=== PATIENT | male | born 1995 | race Caucasian/White ===

== ENCOUNTER 2016-07-31 01:07 | Emergency (ER) | payer SELFPAY ==
--- NOTE | 2016-07-31 07:11 | ER ---
ADMIT: 07/31/2016 RM/LOC: ER [facility] MR#: [id number] [id number] GAGANDEEP ROMERO [address] [place] [id number] Emergency Room Report SEX: M AGE: 21 : 1995 DATE: 07/31/2016 The patient is a 21-year-old male complaining of toothache #13. Denies any fevers, chills, or discharge. Exam remarkable for acutely uncomfortable afebrile male with poor dentition and caries noted #13. Received a benzocaine topical followed by bupivacaine 0.5 mg with epinephrine, superior alveolar block with relief. Pen-Vee K 1 g p.o. in department, 500 mg q.i.d. #40; hydrocodone 5/325 mg as needed #20. Follow up with Dr. Fernandez and dentist as soon as possible. Yan Liang MD/ lorena JOB #: [id number] CC: Yan Liang MD, Attending Physician Denise Fernandez MD, Family Physician Denise Fernandez MD
--- NOTE | 2016-07-31 14:58 | NUR ---
Received referral. Attempted to contact pt. Number listed for pt is not a correct number. Number listed for mom is not a correct number. Number listed for dad is not a working number.
== END 2016-07-31 02:40 | disposition home or self-care (01) ==
LOC: ER 01:07
PROC: 3E0T3BZ Introduction of Anesthetic Agent into Peripheral Nerves and Plexi, Percutaneous Approach (ICD-10-PCS; principal; 2016-07-31)
DX: K08.89 Other specified disorders of teeth and supporting structures (principal); F17.210 Nicotine dependence, cigarettes, uncomplicated